=== PATIENT | male | born 1960 | race Caucasian/White ===

== ENCOUNTER → 2016-11-09 | Outpatient (CLI) | payer OTHER ==
--- NOTE | 2016-11-09 20:56 | DI ---
MRI LEFT KNEE SCAN, 11/09/2016 2:50 PM: Clinical History: Left knee pain. Previous Exam: None at this facility. Technique: Axial, coronal, and sagittal PD and fat saturated PD; axial T1 weighted. There is no soft tissue edema. A large joint effusion is present with synovitis in the suprapatellar bursa and in the region of Hoffa's fat pad. There is a medial popliteal cyst measuring 20 x 20 x 50 m m and a soft tissue signal intensity lesion is present in this popliteal cyst. This soft tissue mater ial probably represents the beginning of the synovial osteochondroma. There is a medial plica. Increa sed signal intensity is present in the medial femoral condyle and in small focal areas of the anterio r aspect of the medial tibial plateau laterally. These hyperintensity changes are consistent with bon e edema. There are chronic partial tears in the anterior and superior aspect of the medial collateral ligament with similar change in the medial patellofemoral ligament and medial retinaculum near the M CL. Chronic partial tears are present in both bundles of the anterior cruciate ligament. The posterio r cruciate and lateral collateral ligaments are intact. The medial and lateral menisci, the patellar and quadriceps and popliteus tendons, and the tendons of the medial and lateral heads of the gastrocn emius muscle are normal. There is fissuring in the central portion of the cartilaginous surface of th e medial femoral condyle consistent with a grade 3 chondromalacia with small areas that may actually represent a grade 4 chondromalacia. Fissuring is also present in the medial tibial plateau centrally and this would be consistent with a grade 2 chondromalacia. The cartilaginous surface of the lateral tibial plateau is intact as well as the lateral femoral condyle but the latter cartilage is thin. The re is a focal area of grade 4 chondromalacia involving the medial facet of the patella. There is a gr nancy 2 chondromalacia of the lateral facet of the patella. Readin. Large joint effusion with synovitis in the region of Hoffa's fat pad and the suprapatellar bursa. A medial popliteal cyst is present with probable early formation of a synovial osteochondroma. There is a small focus of grade 4 chondromalacia of the medial facet of the patella with a grade 2 chondro malacia of the lateral facet. There is a grade 3 and probably actually a grade 4 focus of chondromala radha in the central portion of the medial femoral condyle. Grade 2 chondromalacia is present in the ce ntral portion of the medial tibial plateau. Chronic partial tears are present in the MCL, ACL, and th e medial patellofemoral ligament and medial retinaculum. The latter 2 structures show no evidence of significant laxity. 2. The PCL, LCL, medial and lateral menisci, the quadriceps and patellar and popliteus tendons, and the tendons of the medial and lateral heads of the gastrocnemius muscle are normal.
== END ==
LOC: MRI 14:33
PROVIDERS: ATTEND Orthopaedic Surgery
DX: M25.562 Pain in left knee (principal); M25.462 Effusion, left knee; M71.22 Synovial cyst of popliteal space [Baker], left knee; M22.42 Chondromalacia patellae, left knee
CPT/HCPCS: 73721

== ENCOUNTER 2016-11-20 10:42 | Day surgery (SDC) | payer OTHER ==
[~2016-11-20 10:42] MED LIST: LIDOCAINE W/ SODIUM BICARB 0.5 ML SYR ONE; Lactated Ringers 1,000 ML PRIMARY IV ONE; ceFAZolin Inj 2gm (Premix) 50 ML IV ONE
[2016-11-20 11:23] VITALS: RESP 16
[2016-11-20] MEDS ORDERED: MIDAZOLAM 5 MG/1 ML ONE (11:30)
[2016-11-20] MEDS ORDERED: fentaNYL Inj 250 MCG/5 ML VIAL ONE (11:30)
[2016-11-20] MEDS ORDERED: LIDOCAINE MPF 2% - 5 ML (20 MG/1 ML) ONE (11:31)
[2016-11-20] MEDS ORDERED: Ropivacaine 0.2% VIAL 20 ML ONE (12:21)
[2016-11-20] MEDS ORDERED: EPINEPHrine Inj (1:1,000) 30mg/30ml vial ONE (12:21)
[2016-11-20] MEDS ORDERED: ONDANSETRON 4 MG/2 ML VIAL ONE (13:37)
[2016-11-20] MEDS ORDERED: KETAMINE 100 MG/1 ML - 5 ML ONE (13:37)
[2016-11-20] MEDS ORDERED: KETOROLAC 30 MG/1 ML VIAL ONE (13:37)
[2016-11-20] MEDS ORDERED: Lactated Ringers 1,000 ML PRIMARY IV ONE (13:45)
[2016-11-20] MEDS ORDERED: BETAMET ACET/BETAMET NA PH 6 MG/1 ML - 5 ML ONE (14:07)
[2016-11-20] MEDS ORDERED: HYDROmorphone 2 MG/1 ML ONE (14:11)
[2016-11-20] MEDS ORDERED: HYDROcodone-APAP 7.5 MG-325 MG TABLET PO PRN (14:53)
[2016-11-20] MEDS ORDERED: CALCIUM CARBONATE 500 MG (TUMS) CHEWABLE TABLET PO PRN (14:53)
[2016-11-20] MEDS ORDERED: MAG HYDROX/AL HYDROX/SIMETH 30 ML SUSP PO PRN (14:53)
[2016-11-20] MEDS ORDERED: diphenhydrAMINE 25 MG CAPSULE PO PRN (14:53)
[2016-11-20] MEDS ORDERED: MORPHINE SULFATE 2 MG/1 ML IVP PRN (14:53)
[2016-11-20] MEDS ORDERED: Ondansetron ODT Tab 8 MG TAB PO PRN (14:53)
[2016-11-20] MEDS ORDERED: BISACODYL 10 MG SUPPOSITORY RECTAL PRN (14:53)
[2016-11-20] MEDS ORDERED: Prochlorperazine Tab 10 MG TAB PO PRN (14:53)
[2016-11-20] MEDS ORDERED: IBUPROFEN 400 MG TABLET PO PRN (14:53)
[2016-11-20] MEDS ORDERED: BISACODYL 5 MG TABLET PO PRN (14:53)
[2016-11-20] MEDS ORDERED: ONDANSETRON 4 MG/2 ML VIAL IVP PRN (14:53)
[2016-11-20] MEDS ORDERED: NORMAL SALINE 10 ML SYRINGE FLUSH IVP PRN (14:53)
[2016-11-20] MEDS ORDERED: ACETAMINOPHEN 325 MG TABLET PO PRN (14:53)
[2016-11-20] MEDS ORDERED: Lactated Ringers 1,000 ML PRIMARY IV SCH (15:00)
[2016-11-20] MEDS ORDERED: HYDROcodone-APAP 7.5 MG-325 MG TABLET PO ONE (15:19)
[2016-11-20 18:15] VITALS: TEMP 97.2
--- NOTE | 2016-11-23 14:13 | OPS CRUTCH ---
Diagnosis : Left Knee Scope/Debridement Referral Reason: Gait Training/Knee Cryo Cuff S: The patient states he has used crutches before. He states he has three steps to get into his home. O: The patient ambulated 100 feet with crutches and ascended and descended 5 stairs. The patient was also issued a Cryo-Cuff and instructed in its proper use and care. A: The patient tolerated gait and stair training very well. P: No further therapy is indicated at this time. MTDD
== END 2016-11-20 16:55 | disposition home or self-care (01) ==
LOC: SDSC 10:42
PROVIDERS: ATTEND Orthopaedic Surgery
DX: S83.32XA Tear of articular cartilage of left knee, current, initial encounter (principal); M65.862 Other synovitis and tenosynovitis, left lower leg; M67.52 Plica syndrome, left knee
CPT/HCPCS: 29876; 29879; 97116; J0171; J0690; J0702; J1885; J2704; J2795; J3010; J1170; J2001; J2250; J2405; J7120